=== PATIENT | female | born 2000 | race African-American/Black ===

== ENCOUNTER 2022-02-25 11:21 | Observation (INO) | payer OTHER ==
[~2022-02-25] VITALS: Ht 172.7 cm; Wt 61.2 kg
[2022-02-25 12:56] LABS: Alcohol, Urine < 3.0 mg/dL (0-10); Amphetamine Screen, Urine NEGATIVE (NEGATIVE); Barbiturate Scree,Urine NEGATIVE (NEGATIVE); Benzodiazephine Screen, Urine NEGATIVE (NEGATIVE); Cannabinoid Screen, Urine NEGATIVE (NEGATIVE); Cocaine Screen, Urine NEGATIVE (NEGATIVE); Opiate Scree,Urine NEGATIVE (NEGATIVE); Phencyclidine Screen, Urine NEGATIVE (NEGATIVE)
[2022-02-25 12:57] LABS: Urine Bacteria FEW /hpf (None Seen); Urine Blood 2+ /uL (Negative); Urine Mucus FEW (None Seen); Urine Specific Gravity 1.024 (1.001-1.035); Urine WBC 30 /hpf (0 - 5); Urine WBC Clumps PRESENT /hpf (None Seen)
[2022-02-25] MEDS ORDERED: PREN-96 PO (14:07)
[2022-02-25] MEDS ORDERED: NITR-87 PO (14:07)
== END 2022-02-25 14:19 | disposition home or self-care (01) ==
LOC: LDRP 11:21 → UNDOADMOB 11:21 → LDRP 11:23
PROVIDERS: ADMIT Obstetrics & Gynecology; ATTEND Obstetrics & Gynecology
DX: O23.42 Unspecified infection of urinary tract in pregnancy, second trimester (principal); O46.92 Antepartum hemorrhage, unspecified, second trimester; Z3A.25 25 weeks gestation of pregnancy
CPT/HCPCS: 59025; 76805; 80307; 81001; 81002; 94760; G0378